=== PATIENT | female | born 1975 | race Caucasian/White ===

== ENCOUNTER → 2025-05-19 07:42 | Outpatient (REF) | payer BC, SELFPAY | LOC: RCS 07:42 | PROVIDERS: ATTENDING PHYSICIAN Nurse Practitioner Family; FAMILY PHYSICIAN Student in an Organized Health Care Education/Training Program | DX: R07.9 Chest pain, unspecified (principal); R13.19 Other dysphagia | CPT/HCPCS: 74246; 93017 ==

== ENCOUNTER → 2025-05-20 16:34 | Outpatient (REF) | payer BC, SELFPAY | LOC: WDC 16:34 | PROVIDERS: ATTENDING PHYSICIAN Nurse Practitioner Family | DX: Z12.31 Encounter for screening mammogram for malignant neoplasm of breast (principal) | CPT/HCPCS: 77063; 77067 ==

== ENCOUNTER → 2025-06-11 06:51 | Outpatient (REF) | payer BC, SELFPAY | LOC: RCS 06:51 | PROVIDERS: ATTENDING PHYSICIAN Nuclear Medicine Nuclear Cardiology; FAMILY PHYSICIAN Nurse Practitioner Family; REFERRING PHYSICIAN Internal Medicine Cardiovascular Disease | DX: R00.2 Palpitations (principal); I34.0 Nonrheumatic mitral (valve) insufficiency; R94.39 Abnormal result of other cardiovascular function study | CPT/HCPCS: 93017; 93320; 93325; 93350 ==

== ENCOUNTER 2025-06-15 06:22 | Day surgery (SDC) | payer BC, SELFPAY | END 2025-06-15 14:22 | disposition home or self-care (01) | LOC: GI 06:22 | PROVIDERS: ATTENDING PHYSICIAN Student in an Organized Health Care Education/Training Program | DX: R13.10 Dysphagia, unspecified (principal); R12 Heartburn; K22.2 Esophageal obstruction; R07.9 Chest pain, unspecified; K31.89 Other diseases of stomach and duodenum; K29.50 Unspecified chronic gastritis without bleeding | CPT/HCPCS: 43249; 43239; 88305; 88342 ==

== ENCOUNTER → 2025-06-29 09:38 | Outpatient (REF) | payer BC, SELFPAY | LOC: RAD 09:38 | PROVIDERS: ATTENDING PHYSICIAN Nuclear Medicine Nuclear Cardiology; FAMILY PHYSICIAN Nurse Practitioner Family | DX: I34.0 Nonrheumatic mitral (valve) insufficiency (principal); E78.00 Pure hypercholesterolemia, unspecified | CPT/HCPCS: 75574; Q9967 ==

== ENCOUNTER 2025-07-27 06:26 | Day surgery (SDC) | payer BC, SELFPAY | END 2025-07-27 11:11 | disposition home or self-care (01) | LOC: GI 06:26 | PROVIDERS: ATTENDING PHYSICIAN Student in an Organized Health Care Education/Training Program | DX: K63.5 Polyp of colon (principal); K22.2 Esophageal obstruction; K31.89 Other diseases of stomach and duodenum; R13.10 Dysphagia, unspecified; Z83.710 Family history of adenomatous and serrated polyps | CPT/HCPCS: 45380; 43249; 43239; 88305; 88342 ==